=== PATIENT | male | born 1960 | race Caucasian/White ===

== ENCOUNTER 2022-01-18 08:49 | Outpatient (CLI) | payer OTHER, SELFPAY ==
--- NOTE | ~2022-01-18 | US_ITS ---
EXAMINATION: US art doppler w press LE BI DATE: 01/18/2022 10:05 INDICATION: Bilateral lower limb peripheral arterial occlusive disease with claudication and peripher al vascular disease risk factors of hypercholesterolemia and prior smoking. TECHNIQUE: Segmental pressures and plethysmographic and Doppler waveforms of the brachial and lower e xtremity arteries were obtained. COMPARISON: None. FINDINGS: Right and left brachial artery pressures of 103 mm Hg and 98 mm Hg, respectively, are concordant (nor mal difference <= 30 mmHg). The right and left high-thigh pressure indices are 1.17 and 1.14, respect ively (normal > 1.2). The right ankle-brachial index (ANDREW) is 1.08 (normal >= 0.9-1). The right great toe-brachial index (T BI) is 0.46 (normal >= 0.6-0.8). The right lower extremity segmental pressure gradients are normal (n ormal gradients <= 20-30 mmHg between adjacent levels on the same leg or the same levels on the two l egs). Arterial waveforms are biphasic with brisk systolic upstrokes throughout the arteries of the ri ght lower limb. The left ANDREW is 0.97. The left TBI is 0.77. The left lower extremity segmental pressure gradients are normal. Arterial waveforms are biphasic with brisk systolic upstrokes throughout the arteries of the left lower limb. IMPRESSION: 1. Mild arterial occlusive disease to the bilateral lower limbs with mildly decreased bilateral high thigh pressure indices, mildly decreased right TBI and borderline left ANDREW. Reviewed, dictated and finalized at location A. IMPRESSION: 1. Mild arterial occlusive disease to the bilateral lower limbs with mildly dec reased bilateral high thigh pressure indices, mildly decreased right TBI and ronald rderline left ANDREW.
== END 2022-01-18 08:50 | disposition home or self-care (01) ==
PROVIDERS: PCP Family Medicine; Visit Provider Podiatrist Foot & Ankle Surgery
DX: I73.9 Peripheral vascular disease, unspecified (principal)
CPT/HCPCS: 93923